=== PATIENT | female | born 1970 | race Caucasian/White ===

== ENCOUNTER 2019-12-11 15:33 | Outpatient (CLI) | payer BC ==
[~2019-12-11] VITALS: Ht 172.7 cm; Wt 87.1 kg
[2019-12-11 16:00] LABS: ABG BASE EXCESS -1.8 mmol/L (-2.0-2.0); ABG HCO3 22.7 mmol/L (22.0-26.0); ABG OXYGEN SATURATION 96.4 % (94-97); ABG PCO2 (T) 38.2 mmHg (32.0-45.0); ABG PO2 (T) 79.8 mmHg (75.0-100.0); ALLEN'S TEST POSITIVE; FCOHb 5.9 % (0.0-3.9); FMetHb 0.1 % (0.0-1.5); FO2Hb 90.6 % (94-97); TOTAL HEMOGLOBIN 16.5 G/dl (12.0-16.0)
[2019-12-11] MEDS ORDERED: albuterol 2.5 MG/3 ML nebule NEB ONE (16:25)
== END 2019-12-11 23:59 | disposition home or self-care (01) ==
LOC: RT 15:33
PROVIDERS: ATTEND Internal Medicine Cardiovascular Disease
DX: J44.9 Chronic obstructive pulmonary disease, unspecified (principal)
CPT/HCPCS: 36600; 82803; 85018; 94060; 94727; 94729; 94760

== ENCOUNTER 2024-06-04 22:38 | Inpatient (IN) | payer BC, OTHER ==
[~2024-06-04] VITALS: Ht 172.7 cm; Wt 89.0 kg
[~2024-06-04 22:38] MED LIST: LIDOcaine 1% 30ml preserv. free vial ONE; fentaNYL/PF 50MCG/1 ML 2ML syringe ONE; heparin 1,000unit/ml 10ml vial 10 ML ONE; iohexol 350MG/ML 100ml bottle IV ONE; midazolam 1 mg/ML 2ml injection ONE; nitroGLYCERIN 500mcg/5mL D5W 10 ML IV ONE; verapamil 2.5 mg/ml inj IV ONE
[2024-06-04] MEDS ORDERED: amiodarone/D5 360MG/200ML BAG 200 ML IV ONE (22:59)
[2024-06-04 23:00] LABS: BASOPHILS # (AUTO) 0.1 X10'3 (0-0.2); BASOPHILS % (AUTO) 0.3 % (0-1); EOSINOPHILS # (AUTO) 0.1 X10'3 (0-0.9); EOSINOPHILS % (AUTO) 0.3 % (0-6); HEMATOCRIT 48.4 % (35.0-45.0); HEMOGLOBIN 16.3 g/dl (12.0-16.0); LYMPHOCYTES % (AUTO) 9.5 % (21-51); MEAN CORPUSCULAR HEMOGLOBIN 30.9 PG (27.0-31.0); MEAN CORPUSCULAR HGB CONC 33.6 g/dL (33.0-36.5); MEAN PLATELET VOLUME 7.7 FL (7.4-10.4); MONOCYTES % (AUTO) 4.6 % (2-12); NEUTROPHILS # (AUTO) 17.9 X10'3 (1.8-7.7); NEUTROPHILS % (AUTO) 85.3 % (42-75); PLATELET COUNT 255 X10'3 (140-440); RED BLOOD COUNT 5.26 X10'6 (4.20-5.60); RED CELL DISTRIBUTION WIDTH 13.7 % (11.5-14.5); WHITE BLOOD COUNT 20.9 X10'3 (4.5-11.0)
[2024-06-04] MEDS ORDERED: heparin 1,000unit/ml 10ml vial 10 ML ONE (23:10)
[2024-06-04 23:11] LABS: APTT 61 SECONDS (22-32); INR 1.1 INR; PROTHROMBIN TIME 11.4 SECONDS (9.0-12.0)
[2024-06-04 23:13] LABS: ALANINE AMINOTRANSFERASE 44 U/L (12-78); ALBUMIN 3.6 G/DL (3.4-5.0); ALKALINE PHOSPHATASE 120 IU/L (46-116); ANION GAP 7 (8-16); ASPARTATE AMINO TRANSFERASE 77 U/L (10-37); BILIRUBIN,TOTAL 1.4 MG/DL (0.1-1.0); BLOOD UREA NITROGEN 13 MG/DL (7-18); BUN/CREATININE RATIO 17.6 (10.0-20.0); CALCIUM 9.2 MG/DL (8.5-10.1); CHLORIDE 104 MMOL/L (99-107); CREATININE 0.74 MG/DL (0.40-0.90); GLUCOSE 235 MG/DL (70-104); SODIUM 140 MMOL/L (135-145); TOTAL CARBON DIOXIDE 28.7 MMOL/L (24-32); TOTAL PROTEIN 7.1 G/DL (6.4-8.2); eCRCL 90 ML/MIN; eGFR 82 ML/MIN
[2024-06-04] MEDS ORDERED: aspirin 325mg tablet ONE (23:19)
[2024-06-04] MEDS ORDERED: ticagrelor 90mg tablet ONE (23:19)
[2024-06-04 23:21] LABS: PRO BRAIN NATRIURETIC PEPTIDE 118 PG/ML (0-125)
[2024-06-05] VITALS (24 sets, daily range): BP systolic 127–173; BP diastolic 55–86; PULSE 64–90; RESP 12–23; TEMP 97.1–97.5; O2SAT 93–98
[2024-06-05 01:29] LABS: HEMOGLOBIN A1C 5.3 % (4.5-6.2)
[2024-06-05 01:31] LABS: ALANINE AMINOTRANSFERASE 54 U/L (12-78); ALBUMIN 3.6 G/DL (3.4-5.0); ALBUMIN/GLOBULIN RATIO 1.1 (1.1-1.5); ALKALINE PHOSPHATASE 119 IU/L (46-116); ANION GAP 4 (8-16); ASPARTATE AMINO TRANSFERASE 169 U/L (10-37); BILIRUBIN,TOTAL 1.1 MG/DL (0.1-1.0); BLOOD UREA NITROGEN 11 MG/DL (7-18); BUN/CREATININE RATIO 15.1 (10.0-20.0); CHLORIDE 104 MMOL/L (99-107); CREATININE 0.73 MG/DL (0.40-0.90); GLUCOSE 123 MG/DL (70-104); MAGNESIUM 1.8 MG/DL (1.5-2.4); PHOSPHORUS 3.4 MG/DL (2.3-4.5); POTASSIUM 3.9 MMOL/L (3.5-5.1); SODIUM 139 MMOL/L (135-145); TOTAL CARBON DIOXIDE 31.4 MMOL/L (24-32); TOTAL PROTEIN 6.8 G/DL (6.4-8.2); eCRCL 91 ML/MIN; eGFR 84 ML/MIN
[2024-06-05 01:53] LABS: BASOPHILS # (AUTO) 0.1 X10'3 (0-0.2); BASOPHILS % (AUTO) 0.3 % (0-1); EOSINOPHILS % (AUTO) 0 % (0-6); HEMATOCRIT 49.4 % (35.0-45.0); HEMOGLOBIN 16.4 g/dl (12.0-16.0); LYMPHOCYTES # (AUTO) 2.2 X10'3 (1.1-4.8); LYMPHOCYTES % (AUTO) 10.7 % (21-51); MEAN CORPUSCULAR HEMOGLOBIN 30.9 PG (27.0-31.0); MEAN CORPUSCULAR HGB CONC 33.2 g/dL (33.0-36.5); MEAN CORPUSCULAR VOLUME 93.1 FL (78-98); NEUTROPHILS # (AUTO) 17.5 X10'3 (1.8-7.7); PLATELET COUNT 260 X10'3 (140-440); RED BLOOD COUNT 5.31 X10'6 (4.20-5.60); RED CELL DISTRIBUTION WIDTH 13.9 % (11.5-14.5); WHITE BLOOD COUNT 20.8 X10'3 (4.5-11.0)
[2024-06-05] MEDS: morphine 2 MG/ML inj. syringe IV ONE ×2 (03:47→03:55)
[2024-06-05] MEDS: normal saline 1000ml 1,000 ML IV SCH (03:47)
[2024-06-05] MEDS: aspirin 81mg, enteric-coated 1 TAB TABLET.DR PO SCH (08:30)
[2024-06-05] MEDS: ticagrelor 90mg tablet PO SCH (08:30)
[2024-06-05] MEDS ORDERED: nitroGLYCERIN 0.4mg SUBLingual tab SL PRN (10:45)
[2024-06-05] MEDS: morphine 2 MG/ML inj. syringe IV PRN (11:00)
[2024-06-05] MEDS: metoprolol tartrate 25mg tablet PO ONE (11:24)
[2024-06-05] MEDS: atorvastatin 20mg tablet PO SCH (21:31)
[2024-06-06] VITALS (8 sets, daily range): BP systolic 94–188; BP diastolic 78–104; PULSE 85–144; RESP 16–20; TEMP 97.3–98.6; O2SAT 94–96
[2024-06-06] MEDS ORDERED: amLODIPine 5mg tablet PO ONE (02:30)
[2024-06-06] MEDS ORDERED: potassium Cl 20 mEq SR tablet PO PRN ×2 (02:30)
[2024-06-06] MEDS ORDERED: magnesium sulf-water 2g/50mL 50 ML IV PRN (02:30)
[2024-06-06] MEDS ORDERED: potassium Cl 40MEQ/1/2NS 520ml 520 ML IV PRN (02:30)
[2024-06-06] MEDS ORDERED: magnesium hydroxide 30ml (MOM) UD suspension PO PRN (02:30)
[2024-06-06] MEDS ORDERED: magnesium Cl slow-release 64mg tablet PO PRN (02:30)
[2024-06-06] MEDS ORDERED: HYDROmorphone inj. 0.5 MG/0.5 ML DISP.SYRIN IV PRN (02:30)
[2024-06-06] MEDS ORDERED: magnesium sulf-water 4G/100mL 100 ML IV PRN (02:30)
[2024-06-06] MEDS ORDERED: morphine 2 MG/ML inj. syringe IV PRN (02:30)
[2024-06-06] MEDS ORDERED: mag hydrox/Alum hydrox/simeth 30ml oral suspension PO PRN (02:30)
[2024-06-06] MEDS ORDERED: acetaminophen 325mg tablet PO PRN (02:30)
[2024-06-06] MEDS: ondansetron/PF 4mg/2ml inj IV PRN (02:55)
[2024-06-06] MEDS: hydrALAZINE 20mg/ml inj. IV ONE ×2 (03:23→04:44)
[2024-06-06 07:21] LABS: MAGNESIUM 1.7 MG/DL (1.5-2.4); POTASSIUM 3.6 MMOL/L (3.5-5.1)
[2024-06-06] MEDS: docusate sod 100mg capsule PO SCH (08:00)
[2024-06-06] MEDS: K and/or MAG REPLACEMENT MC SCH (08:00)
[2024-06-06 08:16] LABS: BASOPHILS % (AUTO) 0.1 % (0-1); EOSINOPHILS % (AUTO) 0.2 % (0-6); HEMATOCRIT 44.9 % (35.0-45.0); HEMOGLOBIN 14.9 g/dl (12.0-16.0); LYMPHOCYTES % (AUTO) 17.7 % (21-51); MEAN CORPUSCULAR HEMOGLOBIN 30.5 PG (27.0-31.0); MEAN CORPUSCULAR HGB CONC 33.1 g/dL (33.0-36.5); MEAN CORPUSCULAR VOLUME 92.1 FL (78-98); MONOCYTES # (AUTO) 0.8 X10'3 (0-0.9); MONOCYTES % (AUTO) 4.5 % (2-12); NEUTROPHILS # (AUTO) 12.9 X10'3 (1.8-7.7); NEUTROPHILS % (AUTO) 77.5 % (42-75); PLATELET COUNT 248 X10'3 (140-440); RED BLOOD COUNT 4.88 X10'6 (4.20-5.60); RED CELL DISTRIBUTION WIDTH 13.6 % (11.5-14.5); WHITE BLOOD COUNT 16.6 X10'3 (4.5-11.0)
[2024-06-06] MEDS: heparin, porcine 5000 units/ml vial SQ SCH (08:28)
[2024-06-06] MEDS ORDERED: METO1TAB12 PO (11:21)
[2024-06-06] MEDS ORDERED: VITD400T PO (11:22)
[2024-06-06 13:28] LABS: C DIFF ANTIGEN NEGATIVE (NEGATIVE); C DIFF SPECIMEN=DIARRHEA? ACCEPTABLE; C DIFFICILE TOXINS A&B NEGATIVE (Neg)
[2024-06-06] MEDS: lisinopril 5mg tablet PO SCH (17:07)
[2024-06-06] MEDS: metoprolol tartrate 25mg tablet PO SCH (17:07)
[2024-06-06 17:16] LABS: CHOL/HDL RATIO 4.3 (0.00-4.99); CHOLESTEROL 178 MG/DL (0-200); HDL CHOLESTEROL 41 MG/DL (35-60); LDL CHOLESTEROL 122 MG/DL (50-100); TRIGLYCERIDES 138 MG/DL (20-135)
[2024-06-06] MEDS ORDERED: ATOR40TA PO (17:43)
[2024-06-06] MEDS ORDERED: TICA90TA PO (17:43)
[2024-06-06] MEDS ORDERED: ASPI-1071 PO (17:43)
== END 2024-06-06 21:15 | disposition home or self-care (01) | DRG 322 ==
LOC: ER 22:39 → CICU 2S 23:30 → PCU 3S 06-05 19:22
PROVIDERS: ADMIT Student in an Organized Health Care Education/Training Program; ATTEND Student in an Organized Health Care Education/Training Program
PROC: 027034Z Dilation of Coronary Artery, One Artery with Drug-eluting Intraluminal Device, Percutaneous Approach (ICD-10-PCS; principal; 2024-06-04)
PROC: 4A023N7 Measurement of Cardiac Sampling and Pressure, Left Heart, Percutaneous Approach (ICD-10-PCS; 2024-06-04)
PROC: B2111ZZ Fluoroscopy of Multiple Coronary Arteries using Low Osmolar Contrast (ICD-10-PCS; 2024-06-04)
DX: I21.19 ST elevation (STEMI) myocardial infarction involving other coronary artery of inferior wall (principal); I47.10 Supraventricular tachycardia, unspecified; E78.5 Hyperlipidemia, unspecified; I11.9 Hypertensive heart disease without heart failure; R73.03 Prediabetes; E66.811 Obesity, class 1; Z68.29 Body mass index [BMI] 29.0-29.9, adult
CPT/HCPCS: 93306; 93454; 99285; C9606; 36415; 80053; 80061; 83036; 83735; 83880; 84100; 84132; 84484; 85025; 85610; 85730; 86885; 86900; 86901; 87081; 87324; 87449; 93005; 99152; 99153; C1725; C1751; C1769; C1874; C1894; G0378; J0282; J0360; J1644; J2003; J2250; J2270; J2405; J3010; J3490; J7030; Q9967